=== PATIENT | male | born 1990 | race Caucasian/White ===

== ENCOUNTER 2024-02-17 12:16 | Inpatient (IN) | payer OTHER, MEDICAID, SELFPAY ==
[2024-02-11 14:21] VITALS: BMI 63.6
--- NOTE | 2024-02-15 21:02 | P.HP_ITS ---
History of Present Illness History of Present Illness [place] [facility] [place]: 33 year old male here for right foot pain. The condition began over 2 months ago. 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 He was seen by primary care physician, who referred him to podiatry with X-ray finding of irregularity to second metatarsal head. Patient rates the pain at +6/10, and it is constant whether he's resting or moving the toes. This is affecting his day to day activities and work. Since last visit, patient made no progress despite being compliant with CAM boot immobilization as well as failing steroid injection. Patient is interested in surgical intervention for a chance of relief. Patient denies n/v/f/c/sob/cp. [facility] Medical History (Updated 02/12/24 @ 08:26 by Keturah Oliveira RN) Morbid obesity with BMI of 60.0-69.9, adult HLD (hyperlipidemia) HTN (hypertension) Freiberg's disease Diabetes Surgical History (Updated 02/12/24 @ 07:51 by Keturah Oliveira RN) Hx of tonsillectomy (2006) History of open reduction and internal fixation (ORIF) procedure (2008) Hx of left knee surgery (2018) History of carpal tunnel surgery of left wrist (02/06/21) History of carpal tunnel surgery of right wrist (2018) Social History household members: family Smoking Status: Current every day smoker alcohol intake: current Meds Home Medications and Allergies Home Medications Medication Instructions Recorded Confirmed Type albuterol sulfate 90 mcg/actuation 2 puff inhalation Q4-6H PRN 02/12/24 02/12/24 History aerosol inhaler Shortness Of Breath atorvastatin 10 mg tablet 10 mg PO BEDTIME 02/12/24 02/12/24 History furosemide 20 mg tablet 20 mg PO DAILY 02/12/24 02/12/24 History ibuprofen 200 mg tablet 800 mg PO Q8H PRN Pain 02/12/24 02/12/24 History lisinopril 10 mg tablet 10 mg PO DAILY 02/12/24 02/12/24 History metformin 500 mg tablet 500 mg PO BID 02/12/24 02/12/24 History Allergies Allergy/AdvReac Type Severity Reaction Status Date / Time nafcillin Allergy Rash Verified 02/12/24 07:51 Review of Systems Review of Systems Narrative: Negative except as mentioned in HPI. Exam Neuro Other: NV intact. Extrem Other: Pain on palpation to second metatarsophalangeal joint. Negative Shai's test. Assessment & Plan Assessment & Plan narrative: 1. Right foot Freiberg disease. 2. Right foot pain. 3. Type II Diabetes. Patient seen and evaluated. Surgical plan: right foot metatarsectomy with implant arthroplasty. Risks and benefits discussed with all questions answered to patient's satisfaction and no guarantees made. Reviewed potential complications that may include but not limited to the following: DVT, failure to resolve all symptoms, infection, bleeding, nerve disorder, recurrence, or wound. Patient verbalized understanding and agreed with surgical plan. RTC for post-op.
[2024-02-16] VITALS (25 sets, daily range): BP systolic 110–160; BP diastolic 52–91; PULSE 77–121; RESP 14–35; TEMP 36.3–37.5; O2SAT 82–99; BMI 63.1
--- NOTE | 2024-02-16 07:51 | PM.PREOP ---
Pre-operative Note Interval Note History & Physical reviewed/Exam performed by Physician: Yes Changes to H&P: No
[2024-02-16] MEDS: CLINDAMYCIN 900 MG/50 ML PIGGYBACK 50 MG IV (13:39)
--- NOTE | 2024-02-16 14:06 | SUR.OPER ---
Supine on padded OR bed, head on pillow, arms secured on padded arm boards at <90 degrees abduction, legs uncrossed, tape over blanket on non operative leg, operative leg resting on bump of blankets, bump under right hip, safety belt at thigh, another safety belt over abdomen.
[2024-02-16] MEDS: LIDOCAINE 1% 20 ML INJ (14:35)
[2024-02-16] MEDS: BUPIVACAINE 0.5% (PF) 30 ML VIAL INJ (14:35)
[2024-02-16] MEDS: VANCOMYCIN 1,000 MG VIAL 1000 MG TOP (15:17)
--- NOTE | 2024-02-16 17:49 | SUR.PHASEI ---
PACU - Updated Dr. Juarez (anesthesia) on continued low oxygenation. Patient currently on 5L via Nasal Canula and fluctuates between 87-96%. Dr. Juarez and Dr. Mcqueen both at bedside. Both agree that patient should spend the night due to oxygen needs. Patient aware and coordinator updated. Patient's mother updated that patient will be spending the night. Patient otherwise stable and resting peacefully.
--- NOTE | 2024-02-16 17:59 | PM.PN.1 ---
Subjective Subjective Interval history: Patient is s/p right second metatarsectomy with implant placement. Patient demonstrated respiratory distress and inability to maintain oxygen level. Spoke to Dr. Fajardo in regards to post-op observation. Appreciate cooperative efforts with order and all necessary measures and okay to be d/c when stable. - Aayush Mcqueen DPM; call/text . Exam Vital Signs (past 8 hours): - 02/16/24 16:06 02/16/24 16:09 02/16/24 16:11 Temperature 99.5 F Pulse Rate 97 H 102 H 99 H Respiratory Rate 33 H 34 H 35 H Blood Pressure 123/67 126/66 123/63 Pulse Oximetry 93 92 91 Oxygen Delivery Method Simple Mask Simple Mask Simple Mask Oxygen Flow Rate 10 10 10 02/16/24 16:16 02/16/24 16:21 02/16/24 16:26 Temperature 99.3 F Pulse Rate 98 H 114 H 112 H Respiratory Rate 30 H 20 31 H Blood Pressure 160/69 H 134/88 142/89 H Pulse Oximetry 92 91 93 Oxygen Delivery Method Simple Mask Simple Mask Oxygen Flow Rate 10 10 10 02/16/24 16:31 02/16/24 16:45 02/16/24 17:00 Temperature 99.5 F Pulse Rate 121 H 113 H 108 H Respiratory Rate 21 27 H 20 Blood Pressure 156/78 H 155/85 H 124/68 Pulse Oximetry 82 L 97 93 Oxygen Delivery Method Simple Mask Simple Mask CPAP Oxygen Flow Rate 5 10 2 02/16/24 17:15 02/16/24 17:32 02/16/24 17:40 Temperature 99.5 F Pulse Rate 103 H 100 H 98 H Respiratory Rate 20 14 22 Blood Pressure 117/54 L 119/54 L Pulse Oximetry 89 L 89 L 87 L Oxygen Delivery Method CPAP CPAP Nasal Cannula Oxygen Flow Rate 2 3 5 Oxygen Delivery Method Nasal Cannula Oxygen Flow Rate 5 PFSH Medical History (Updated 02/12/24 @ 08:26 by Keturah Oliveira RN) Morbid obesity with BMI of 60.0-69.9, adult HLD (hyperlipidemia) HTN (hypertension) Freiberg's disease Diabetes Surgical History (Updated 02/12/24 @ 07:51 by Keturah Oliveira RN) Hx of tonsillectomy (2006) History of open reduction and internal fixation (ORIF) procedure (2008) Hx of left knee surgery (2019) History of carpal tunnel surgery of left wrist (02/06/21) History of carpal tunnel surgery of right wrist (2019) Social History household members: family Smoking Status: Current every day smoker alcohol intake: current
[2024-02-16] MEDS: OXYCODONE IR 5 MG TABLET PO (18:14)
--- NOTE | 2024-02-16 19:05 | PM.HP.1 ---
History of Present Illness History of Present Illness Date Patient Seen: 02/16/24 Time Patient Seen: 19:05 Chief complaint: SDC Narrative: The patient is a 33-year-old male who is status post a right 2nd metatarsal ectomy with implant placement today. The patient has a history of morbid obesity with a BMI of 63 as well as sleep apnea and had some respiratory distress and hypoxemia in the recovery phase. He was felt that he would do best being observed overnight to monitor oxygenation and respiratory status. The patient does have a BiPAP at home but has great difficulty using it because of claustrophobia. He was transferred to the floor on 2 L of oxygen is feeling more awake. He denies any shortness a breath. His oximeter reads 93% on 3 L. He denies any chest pain. His foot pain is well controlled with the pain medication he received in the post procedural area. He denies any recent difficulties with constipation, or diarrhea. No recent hematuria, or dysuria. He takes oral medications for diabetes. [facility] Medical History Morbid obesity with BMI of 60.0-69.9, adult HLD (hyperlipidemia) HTN (hypertension) Freiberg's disease Diabetes Surgical History Hx of tonsillectomy (2006) History of open reduction and internal fixation (ORIF) procedure (2008) Hx of left knee surgery (2018) History of carpal tunnel surgery of left wrist (02/06/21) History of carpal tunnel surgery of right wrist (2018) Social History household members: family Smoking Status: Current every day smoker alcohol intake: current Meds Home Medications and Allergies Home Medications Medication Instructions Recorded Confirmed Type albuterol sulfate 90 mcg/actuation 2 puff inhalation Q4-6H PRN 02/12/24 02/16/24 History aerosol inhaler Shortness Of Breath atorvastatin 10 mg tablet 10 mg PO BEDTIME 02/12/24 02/16/24 History furosemide 20 mg tablet 20 mg PO DAILY 02/12/24 02/16/24 History ibuprofen 200 mg tablet 800 mg PO Q8H PRN Pain 02/12/24 02/16/24 History lisinopril 10 mg tablet 10 mg PO DAILY 02/12/24 02/16/24 History metformin 500 mg tablet 500 mg PO BID 02/12/24 02/16/24 History oxycodone-acetaminophen 5 mg-325 1 tab PO Q6H PRN pain #30 tabs 02/16/24 02/16/24 Rx mg tablet (Percocet) Allergies Allergy/AdvReac Type Severity Reaction Status Date / Time nafcillin Allergy Rash Verified 02/16/24 09:53 Review of Systems Review of Systems Narrative: All else reviewed and otherwise unremarkable except as noted in the history and physical. Exam Vital Signs (past 8 hours): - 02/16/24 16:06 02/16/24 16:09 02/16/24 16:11 Temperature 99.5 F Pulse Rate 97 H 102 H 99 H Respiratory Rate 33 H 34 H 35 H Blood Pressure 123/67 126/66 123/63 Pulse Oximetry 93 92 91 Oxygen Delivery Method Simple Mask Simple Mask Simple Mask Oxygen Flow Rate 10 10 10 02/16/24 16:16 02/16/24 16:21 02/16/24 16:26 Temperature 99.3 F Pulse Rate 98 H 114 H 112 H Respiratory Rate 30 H 20 31 H Blood Pressure 160/69 H 134/88 142/89 H Pulse Oximetry 92 91 93 Oxygen Delivery Method Simple Mask Simple Mask Oxygen Flow Rate 10 10 10 02/16/24 16:31 02/16/24 16:45 02/16/24 17:00 Temperature 99.5 F Pulse Rate 121 H 113 H 108 H Respiratory Rate 21 27 H 20 Blood Pressure 156/78 H 155/85 H 124/68 Pulse Oximetry 82 L 97 93 Oxygen Delivery Method Simple Mask Simple Mask CPAP Oxygen Flow Rate 5 10 2 02/16/24 17:15 02/16/24 17:32 02/16/24 17:40 Temperature 99.5 F Pulse Rate 103 H 100 H 98 H Respiratory Rate 20 14 22 Blood Pressure 117/54 L 119/54 L Pulse Oximetry 89 L 89 L 87 L Oxygen Delivery Method CPAP CPAP Nasal Cannula Oxygen Flow Rate 2 3 5 02/16/24 18:00 02/16/24 18:05 02/16/24 18:17 Temperature 99.3 F 98.7 F Pulse Rate 99 H 98 H Respiratory Rate 19 17 Blood Pressure 115/72 123/71 Pulse Oximetry 91 94 95 Oxygen Delivery Method Nasal Cannula Nasal Cannula Nasal Cannula Oxygen Flow Rate 5 5 5 02/16/24 18:50 Temperature 97.3 F L Pulse Rate 105 H Respiratory Rate 28 H Blood Pressure 129/65 Pulse Oximetry 94 Oxygen Delivery Method Oxygen Flow Rate 5 Oxygen Delivery Method Nasal Cannula Oxygen Flow Rate 5 Narrative Exam Narrative: NAD, alert and oriented, fluent speech, calm. Morbidly obese. On oxygen, 3 L. Normocephalic skull, EOMI, anicteric sclera, symmetric pupils. Oropharynx unremarkable, no droop. Neck supple, midline trachea, no adenopathy. Lungs clear, normal rate and effort. Heart regular, no murmur gallop or rub. Abdomen is soft, non distended and non tender. Extremities are free of edema. Skin is free of rash or lesions. Joints are not swollen or deformed. Judgment appears to be normal. Assessment & Plan Assessment & Plan narrative: 1. Postoperative hypoxemia and respiratory distress, active and improving. 2. Morbid obesity BMI of 63, present on admission and active. 3. DM 2, present on admission and active. 4. Hypertension, present on admission and active. 5. Obstructive sleep apnea, present on admission and active. Plan: -we will monitor with oximeter and telemetry tonight. -wean O2 as able, anticipate nighttime desaturations from sleep apnea. -pain medication as needed with close monitoring. -correctional lispro tonight and a carb controlled diet. -monitor blood pressure, usual blood pressure medications. He is full resuscitation. He was admitted to observation, estimated length of stay is 1 night. Time Spent With Patient Time with patient: 30 to 49 minutes with 50% spent counseling/coordinating care Quality MIPS - Admit I confirm the patient?s Advance Care Plan is present, Code status is documented, Surrogate decision maker is in patient?s record [If Yes, STOP here]: Yes MIPS - Meds 'Current medications' to include all prescriptions, [id number] products, herbals, cannabis/cannabidiol products, and vitamin/mineral/dietary (nutritional) supplements. I have utilized all available resources to obtain, update, or review the patient?s current medications. [If Yes, STOP here]: Yes
[2024-02-16] MEDS: HEPARIN 5,000 UNIT/ML VIAL 5000 UNIT SUBCUT (21:28)
[2024-02-16] MEDS: ATORVASTATIN 20 MG TABLET 10 MG PO (21:28)
[2024-02-16] MEDS: OXYCODONE/ACETAMINOPHEN 5/325 TABLET 1 TAB PO (21:29)
[2024-02-16] MEDS: INSULIN LISPRO 100 UNIT/ML 3ML VIAL SUBCUT (21:40)
[2024-02-16] MEDS: NICOTINE 21 MG PATCH TOP (22:56)
[2024-02-16] MEDS: IBUPROFEN 400 MG TABLET 800 MG PO (23:00)
[2024-02-16] MEDS: HYDROMORPHONE 0.5 MG INJ IV (23:00)
--- NOTE | 2024-02-17 00:22 | PC.NURSE ---
Addendum entered by Keturah Rosario R.N. 02/17/24 06:39: Patient requested to remove BiPAP, stating he is awake and up for the day. Currently on 3L NC, O2 saturation 96%. Patient is talking on the phone. Cont p/ox in place. Addendum entered by Keturah Rosario R.N. 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 O2 saturation >92%. 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 Patient appears SOB at rest, although patient states that he normally breathes like this and states that he feels fine. Educated patient on use of IS. Denies CP or nausea. Voids independently with urinal, has not attempted to get OOB yet. Patient states that he sleeps with BiPAP at night, RT notified and assisted patient with set-up. Cont tele & p/ox in place. Pain medications given as ordered. Right foot is covered with gauze and JOSE wrap; CMS intact, right foot elevated. Oriented to call-light. Plan of care ongoing.
[2024-02-17 01:56] VITALS: BP 126/85; PULSE 90; PULSE 94; RESP 12; RESP 17; RESP 22; TEMP 31; O2SAT 94; O2SAT 95
--- NOTE | 2024-02-17 02:22 | RT ---
Pt noted with sustained SpO2 desturation while on standard hospital CPAP unit with 6L O2 bleed in. Dr. Beard notified at 0126, verbal order obtained. RT placed pt on hospital BiPAP 23/04, back up rate 12, FiO2 30% at 0156, pt tolerating well, noting immediate SpO2 improvement. Device plugged into red outlet. RN notified. Will cont. to monitor.
[2024-02-17 03:35] VITALS: PULSE 90; RESP 14; RESP 18; TEMP 31; O2SAT 93
[2024-02-17 04:52] VITALS: PULSE 85; RESP 14; RESP 21; TEMP 31; O2SAT 93
--- NOTE | 2024-02-17 05:47 | RT ---
0539 - Pt requested to be off BiPAP, was placed on 6L NC. Tolerating well. SpO2 noted WNLs. RN at bedside.
[2024-02-17] MEDS: OXYCODONE/ACETAMINOPHEN 5/325 TABLET 1 TAB PO (06:24)
[2024-02-17 06:26] LABS: Add Manual Diff / Slide Review NO; Basophils Absolute Auto 100 /uL (0-100); Basophils Percent Auto 0.7 % (0-2); Eosinophils Absolute Auto 0 /uL (0-450); Hematocrit 42.8 % (41-53); Hemoglobin 13.8 g/dL (13.5-17.5); Lymphocytes Absolute Auto 1200 /uL (1100-4500); Lymphocytes Percent Auto 9.1 % (25-40); Mean Corpuscular HGB Conc 32.2 % (30-36); Mean Corpuscular Hemoglobin 26.7 PG (26-34); Mean Corpuscular Volume 82.9 fL (80-100); Monocytes Absolute Auto 600 /uL (0-900); Monocytes Percent Auto 4.2 % (3-14); Neutrophils Absolute Auto 11400 /uL (1500-7000); Platelet Count 302 X10^3/uL (150-400); Red Blood Cell Count 5.16 X10^6/uL (4.5-5.9); Red Cell Distribution Width 15.5 % (11.6-14.8); White Blood Cell Count 13.2 X10^3/uL (4.5-11.0)
[2024-02-17 06:44] LABS: BUN Creatinine Ratio 24.6 (6-22); Blood Urea Nitrogen 14 mg/dL (9-20); Calcium 9.2 mg/dL (8.4-10.2); Carbon Dioxide 27 mmol/L (22-32); Chloride 104 mmol/L (98-107); Estimated Glomerular Filt Rate > 60 mL/min (>60); Glucose 258 mg/dL (70-100); HEMOLYSIS < 15 (0-50); Potassium 4.7 mmol/L (3.4-5.1); Sodium 138 mmol/L (137-145)
[2024-02-17 08:00] VITALS: BP 130/74; PULSE 100; RESP 18; TEMP 35.5; O2SAT 94
[2024-02-17 08:28] VITALS: O2SAT 92
[2024-02-17] MEDS: IBUPROFEN 400 MG TABLET 800 MG PO (09:12)
[2024-02-17] MEDS: ACETAMINOPHEN 325 MG TABLET 650 MG PO (09:13)
[2024-02-17] MEDS: OXYCODONE IR 5 MG TABLET PO (09:13)
[2024-02-17] MEDS: FUROSEMIDE 20 MG TABLET PO (09:14)
[2024-02-17] MEDS: HEPARIN 5,000 UNIT/ML VIAL 5000 UNIT SUBCUT (09:14)
[2024-02-17] MEDS: lisinopriL 10 MG TABLET PO (09:14)
[2024-02-17] MEDS: INSULIN LISPRO 100 UNIT/ML 3ML VIAL SUBCUT (09:19)
[2024-02-17] MEDS: METFORMIN HCL 500 MG TABLET PO (09:30)
--- NOTE | 2024-02-17 10:16 | PM.DS.1 ---
History of Present Illness History of Present Illness Chief [place] [facility] [place]ative: The patient is a 33-year-old male who is status post a right 2nd metatarsal ectomy with implant placement today. The patient has a history of morbid obesity with a BMI of 63 as well as sleep apnea and had some respiratory distress and hypoxemia in the recovery phase. He was felt that he would do best being observed overnight to monitor oxygenation and respiratory status. The patient does have a BiPAP at home but has great difficulty using it because of claustrophobia. He was transferred to the floor on 2 L of oxygen is feeling more awake. He denies any shortness a breath. His oximeter reads 93% on 3 L. He denies any chest pain. His foot pain is well controlled with the pain medication he received in the post procedural area. He denies any recent difficulties with constipation, or diarrhea. No recent hematuria, or dysuria. He takes oral medications for diabetes. Discharge Providers Provider Date of admission: 02/16/2024 Discharge Date: 02/17/24 Primary care physician: Bunny Marina DO Consults: 02/16/24 17:56 Consult to Hospitalist Service Routine Comment: Consulting Provider: Aayush Mcqueen Reason for consultation: Post-op respiratory distress Has provider been notified: Yes Discharge provider: Kemar Fajardo MD Summary Hospital Course Discharge Diagnosis: 1. Postoperative hypoxemia and respiratory distress, active and improving. 2. Morbid obesity BMI of 63, present on admission and active. 3. DM 2, present on admission and active. 4. Hypertension, present on admission and active. 5. Obstructive sleep apnea, present on admission and active. Hospital Course: He would concerns for respiratory status postprocedure. He was history of morbid obesity and sleep apnea which is being treated with a BiPAP at home. He was transferred to the floor for observation and did well. He was able to wean off from oxygen in the morning of discharge. He was placed on BiPAP overnight primarily for sleep apnea. He likely has chronic nocturnal desaturations from sleep apnea and is obesity syndrome. 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 Status at Discharge Cognitive/behavioral status at discharge: oriented Functional status at discharge: independent ambulation Overall status at discharge: patient is back to baseline Time Spent with Patient Time spent: Greater than 30 minutes Exam Vital Signs (past 8 hours): - 02/17/24 03:35 02/17/24 04:52 02/17/24 08:00 Temperature 96 F L Pulse Rate 100 H Respiratory Rate 18 Blood Pressure 130/74 Pulse Oximetry 94 Oxygen Delivery Method Oxygen Flow Rate 2 Fraction of Inspired Oxygen 30 30 02/17/24 08:28 Temperature Pulse Rate Respiratory Rate Blood Pressure Pulse Oximetry 92 Oxygen Delivery Method Room Air Oxygen Flow Rate Fraction of Inspired Oxygen Fraction of Inspired Oxygen 30 SaO2/FiO2 Ratio 232 Oxygen Delivery Method Room Air Oxygen Flow Rate 2 Narrative Exam Narrative: NAD, alert and oriented. Fluent speech. Lungs are clear, normal rate and effort. Heart is regular, no murmur gallop or rub. Abdomen is soft, non distended. Extremities are free of edema. Objective Labs 02/17/24 06:05 02/17/24 06:05 Labs: Laboratory Results - last 24 hr 02/17/24 06:05 WBC 13.2 H RBC 5.16 Hgb 13.8 Hct 42.8 MCV 82.9 MCH 26.7 MCHC 32.2 RDW 15.5 H Plt Count 302 Neut % (Auto) 86.0 H Lymph % (Auto) 9.1 L Burke % (Auto) 4.2 Eos % (Auto) 0.0 L Baso % (Auto) 0.7 Neut # (Auto) 30523 H Lymph # (Auto) 1200 Burke # (Auto) 600 Eos # (Auto) 0 Baso # (Auto) 100 Sodium 138 Potassium 4.7 Chloride 104 Carbon Dioxide 27 BUN 14 Creatinine 0.57 L Estimated GFR > 60 BUN/Creatinine Ratio 24.6 H Glucose 258 H Calcium 9.2 PFSH Medical History Morbid obesity with BMI of 60.0-69.9, adult HLD (hyperlipidemia) HTN (hypertension) Freiberg's disease Diabetes Surgical History Hx of tonsillectomy (2006) History of open reduction and internal fixation (ORIF) procedure (2008) Hx of left knee surgery (2018) History of carpal tunnel surgery of left wrist (02/06/21) History of carpal tunnel surgery of right wrist (2019) Social History household members: family Smoking Status: Current every day smoker alcohol intake: current Discharge Assessment & Plan Assessment and Plan Assessment: 1. Postoperative hypoxemia and respiratory distress, active and improving. 2. Morbid obesity BMI of 63, present on admission and active. 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 Friday with Dr. Mcqueen for a wound dressing change, NWB until then. He was a scooter, and crutches at home and may get a walker. Discharge Plan Discharge Plan Patient Disposition: Home Provider Discharge Comment: Stable for discharge home. Nursing Discharge Comment: Dont soak incision. May shower with a boot on. Keep the splint in place. Discharge orders & Medications Discharge Orders: Discharge (Order); Ordered 02/17/24 Ordered By: Kemar Fajardo Prescriptions: New oxycodone-acetaminophen [Percocet] 5-325 mg tablet 1 tab PO Q6H PRN (Reason: pain) Qty: 30 0RF ondansetron 8 mg tablet,disintegrating 8 mg PO Q12H PRN (Reason: nausea and vomiting) Qty: 30 0RF Continued metformin 500 mg Tablet 500 mg PO BID atorvastatin 10 mg Tablet 10 mg PO BEDTIME lisinopril 10 mg Tablet 10 mg PO DAILY ibuprofen 200 mg Tablet 800 mg PO Q8H PRN (Reason: Pain) furosemide 20 mg Tablet 20 mg PO DAILY albuterol sulfate 90 mcg/actuation Hfa Aerosol Inhaler 2 puff INHALATION Q4-6H PRN (Reason: Shortness Of Breath) Follow up/Referrals: Aayush Mcqueen DPM [Physician] - 02/20/24 2:15 pm (Appt:02/19 @ 2:[address] Mcqueen please arrive 15 min prior to your scheduled appointment time ) Bunny Marina DO [Primary Care Provider] - Diet/Activity/Treatments Diet: Diet as Tolerated Activity: NON WEIGHT BEAR to surgicaL limb. Cold/Heat Therapy: Ice behind knee 15 min/hour when awake and elevate above heart on 2+ pillows. Other treatments: RTC on Friday in [place] for post-op check. Skin/Wound/Dressing Care Report to your healthcare provider any signs of infection, such as:: chills, fever, night sweats, increased pain, unusual drainage and unusual redness Dressing: Keep dressing clean, dry, and intact. Do not remove. Visit Report/Discharge Packet Instructions: How to Use an Incentive Spirometer, DI for Constipation, How to Measure Oxygen Saturation via Pulse Oximetry, DI for Prescription Opioid Use, DI for Respiratory Distress Syndrome -- Adult Stand Alone Forms: Patient Portal/API, Dr. Rey Discharge Discharge Data Primary Care Provider: Bunny Marina Attending Provider: Aayush Mcqueen VTE Deep Vein Thrombosis/Pulmonary Embolism Present on Admission: No
--- NOTE | 2024-02-17 10:32 | CM.DANOTE ---
Initial DCP Assessment Visit Note Reviewed EMR and team rounds for status updates. Met with pt at bedside to introduce self and role, pt was found to be alert/oriented, sitting upright in bed, and able to discuss his plan/preferences for home discharge. Pt lives independently with his family in [place], a family friend will be transporting him home later this morning after he works with therapies. No identified d/c needs for CM assistance at this time. Payor: Coordinated Care Attending: Dr. Mcqueen Pt is a 33 year-old M post-op day 1 from an ankle surgery w/implant. 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 He had tried conservative efforts for pain control, including a boot and an injection, however his pain persisted. Plan was made for surgery, no need for Home Health or any other resources at this time. Pt has a plan to follow up with Ortho postoperatively for a wound check. Due to factors such as his morbid obesity, sleep apnea, and respiratory distress/hypoxemia in the PACU, pt required 2LO2 and was admitted to the floor to monitor oxygenation and respiratory status. DCP will continue to follow for any further evolving needs prior to his discharge. Discharge Planning/Care Management CM Discharge Assessment Start: 02/17/24 10:30 Freq: Status: Active Protocol: Document 02/17/24 10:30 DPL (Rec: 02/17/24 10:32 DPL [id number]) Discharge Planning Assessment Assigned Billposter ELODIA Morales Advance Directives? No History Provided By Patient,Medical Record Has Patient been admitted in last 30 No days? Prior Living Arrangements House Household Members family Type of transporation used prior to Drives own vehicle admit Willing to Return to Facility? No Independent with ADL's Yes Is patient alert and oriented? Yes Comment N/A Caregiver for Another No Comment N/A Comment No anticipated home d/c needs identified at this time. Barriers to Discharge No Discharge Plan Home Transportation Arrangement Friend Referrals Initiated None needed Whiteboard Updated in Patient Room with Yes name and ext. 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 No Currently Taking a Beta Emiliana No Can You Climb a Flight of Stairs Without Yes SOB Anti-Coagulant Therapy No Has a Tunnel Worker Yes: Pre-op 02/10/[address] Phipps @ [facility] Hx Pacemaker/ICD No Pacemaker Rep Required? No Cardiac Clearance Received Yes Comment Cardiac records scanned and in surgery folder Urinary Catheter Present No Hx Urinary Self Catheterization No Diabetes Yes HgbA1C 7.0 Date 01/28/24 Marital Status Single Lives With family Patient Discharge Plan Description Return Home
--- NOTE | 2024-02-17 13:40 | PC.NURSE ---
Discharge: Pt feels ready to d/c to home. MD Fajardo is aware that sats on RA are 88-92%, pt reports this is his usual. Doesn't feel any more sob than usual for now. Has been up to the chair, using his crutches or walker. Is following his non weight bear precautions. He does have a walker at home. Po pain meds effective for pain. Vds w/out diff. Tolerates diet w/out problems. He feels ready to d/c to home. Reviewed d/c packet, questions answered. Pt d/c to home via auto with friend.
--- NOTE | 2024-02-17 23:19 | PM.OP.1 ---
Operative Date/Time/Diagnoses Pre-op diagnosis: 1. Right foot Freiberg disease Post-op diagnosis: same Procedure & Clinicians Procedure: 1. Right foot ostectomy with implant arthroplasty Same procedure as scheduled: Yes Indications: 1. Failed conservative treatments with continuous pain after right foot injury Surgeon: Aayush Mcqueen Click Yes if Unassisted: Yes Anesthesia Type: General Operative Notes Findings: 1. Flattened second metatarsal head with floating cartilage and notable thickened synovial tissue Closure Type: primary Specimen(s): none sent Prosthetic devices, grafts, tissues, transplants, or devices: BioPoly Estimated Blood Loss (mL): 25 Blood products transfused: none Tourniquet time (min): 78 Procedure in detail: Patient was identified and consent obtained. Patient was brought to the operating room and placed on the bed in supine position. Appropriate monitors were then placed, and general anesthesia was administered. Local anesthesia was infiltrated in the right second metatarsophalangeal joint (MTPJ) using 10 cc 1% lidocaine plain. Once this was done, the right ankle and foot were then prepped and draped in the usual sterile fashion. After exsanguination, right ankle tourniquet was inflated to 250 mmHg. Timeout was performed with the operating room all in agreement. Attention was directed to dorsal right second metatarsophalangeal joint. A linear incision was made using #15 scalpel. Dissection was carried out from skin down tot the subcutaneous tissue using a a #15 scalpel. Care was taken to protect neurovascular structures. The extensor tendons were identified and retracted laterally. The joint capsule was release a #15 scalpel and a McGlamry elevator. Remarkable thickening noted to the synovium, which was sharply removed. A flattened metatarsal head was identified, as well as floating loose bodies inside the joint. Decision was made to release to medial and lateral collateral ligaments. Following manufacture instructions, an appropriate cut guide was used to assist with resection of distal metatarsal head via a sagittal saw on power. After verification on fluoroscopy, the designated drill was used, and a suitable size of implant was inserted after confirmation with the trial piece. The procedure site was irrigated copiously using flushed saline. The alignment of toe and motion was verified to be optimal at this time, and then surgical site was closed in layers from deep to superficial using 3-0 vicryl and 4-0 vicryls and 3-0 nylon. The tourniquet was released, and perfusion to all digits was noted. 20 cc of 0.5% marcaine plain was administered. Surgical foot was cleansed, followed by sterile dressings using iodine soaked Adaptic, gauze, and Kerlix. A posterior splint was applied over well-padded surface and secured with elastic bandage wraps. Patient tolerated procedure and anesthesia without complication. The patient was transferred to PACU hemodynicamlly stable with close monitoring of respiratory status. Post-operative Condition: stable Disposition: observation Plan for aftercare: Keep dressing clean, dry, and intact. NWB to surgical limb. Elevate above heart on 2+ pillows. Take medications as directed. RTC as scheduled.
== END 2024-02-17 12:33 | disposition home or self-care (01) | DRG 314 ==
PROVIDERS: Hospitalist; Admitting Provider Podiatrist Foot & Ankle Surgery; PCP Family Medicine; Referring Provider Podiatrist Foot & Ankle Surgery; Visit Provider Podiatrist Foot & Ankle Surgery
PROC: (CPT 26535; principal; 2024-02-16 10:15)
DX: M92.71 Juvenile osteochondrosis of metatarsus, right foot (principal); E66.01 Morbid (severe) obesity due to excess calories; E11.9 Type 2 diabetes mellitus without complications; R09.02 Hypoxemia; R06.03 Acute respiratory distress; G47.33 Obstructive sleep apnea (adult) (pediatric); J95.89 Other postprocedural complications and disorders of respiratory system, not elsewhere classified; E78.5 Hyperlipidemia, unspecified; I10 Essential (primary) hypertension; F17.210 Nicotine dependence, cigarettes, uncomplicated; Z68.44 Body mass index [BMI] 60.0-69.9, adult; Z79.84 Long term (current) use of oral hypoglycemic drugs
CPT/HCPCS: 36415; 80048; 82962; 85025; 94660; 94762; C1713; J0330; J1100; J1170; J1642; J1644; J1815; J2250; J2405; J2704; J3010

== ENCOUNTER 2025-05-26 06:14 | Day surgery (SDC) | payer OTHER, SELFPAY ==
[2024-02-16 18:21] VITALS: BMI 63.1
[2024-02-17 04:52] VITALS: PULSE 85; RESP 21; O2SAT 93
[2025-05-18 09:00] VITALS: BMI 65.8
--- NOTE | 2025-05-26 | PATH_ITS ---
[facility] Accession Number: [id number] No. of containers..01 Tissue . 01 Material submitted: . METATARSAL - RIGHT SECOND METATARSAL HEAD . 01 Clinical history: . HYPERTROPHY OF BONE, RIGHT ANKLE AND FOOT . 01 Diagnosis: RIGHT SECOND METATARSAL HEAD, AMPUTATION: Trabecular bone with evidence of remodeling and interspersed marrow with mild fibrosis. See comment. MRV 06/06/2025 1331 Local . 01 Comment: There is no evidence of osteomyelitis or osteonecrosis. The histologic features are nonspecific. Clinical correlation is recommended. . 01 Electronically signed: . Maki Daniel MD, Pathologist NPI- [id number] . 01 Gross description: . Received in formalin with two identifiers and RT second metatarsal head is an amputated fragment of bone with articular surface and attached soft tissue measuring 2.4 x 1.9 x 1.9 cm. The margin is inked blue. Sectioning reveals bruner osseous tissue that is relatively difficult to section with a scalpel as well as a metal piece of surgical hardware measuring approximately 1.1 cm in diameter and 1.4 cm in length. Information Assurance Analyst sections are submitted in A1 following decalcification. ([id number]) /MRV 05/27/2025 1934 Local . 01 Pathologist provided ICD-10: M89.371 . 01 CPT . 275802, [id number] Specimen Comment: A courtesy copy of this report has been sent to [facility] Performed at: [address] [id number] MD Dwayne Wilson MD Phone: [phone]
--- NOTE | 2025-05-26 06:33 | PM.HP.1 ---
History of Present Illness History of Present Illness Chief complaint: Right foot pain Narrative: 34 year old male with diabetes and obesity presented with rifht forefoot pain. Patient underwent successful left knee surgery and is still doing rehabilitation for it. His pain in the right midfoot has also resolved since sustaining midfoot fractures last May. He continue to experiences severe pain to the right forefoot that is constantly inflamed and tender to touch, and the symptoms worsen with ambulation. Patient wants to become more active in order to lose weight, and the pain inhibits him from achieving this goal. Patient has tried and failed conservative measures that included custom insoles, designated exercises, and all anti-inflammatory measures. Patient would like to proceed with all possible surgical means. [facility] Medical History (Updated 05/18/25 @ 09:42 by Keturah Oliveira RN) GERD (gastroesophageal reflux disease) History of COVID-19 (2019) CHAYA on CPAP Ulcerative esophagitis Morbid obesity with BMI of 60.0-69.9, adult HLD (hyperlipidemia) HTN (hypertension) Freiberg's disease Diabetes Surgical History (Updated 05/18/25 @ 09:40 by Keturah Oliveira RN) S/P foot surgery, right (02/2024) Hx of thumb surgery Hx of knee surgery (02/2025) Hx of tonsillectomy (2006) History of open reduction and internal fixation (ORIF) procedure (2008) Hx of left knee surgery (2018) History of carpal tunnel surgery of left wrist (02/06/21) History of carpal tunnel surgery of right wrist (2018) Social History household members: family Smoking Status: Current every day smoker alcohol intake: current Meds Home Medications and Allergies Home Medications ?Medication ?Instructions ?Recorded ?Confirmed ?Type albuterol sulfate 90 mcg/actuation 2 puff inhalation Q4-6H PRN 02/12/24 05/18/25 History aerosol inhaler Shortness Of Breath atorvastatin 10 mg tablet 10 mg PO DAILY 02/12/24 05/18/25 History furosemide 20 mg tablet 20 mg PO DAILY 02/12/24 05/18/25 History ibuprofen 200 mg tablet 800 mg PO Q8H PRN Pain 02/12/24 05/18/25 History lisinopril 10 mg tablet 10 mg PO DAILY 02/12/24 05/18/25 History metformin 500 mg tablet 500 mg PO BID 02/12/24 05/18/25 History ondansetron 8 mg disintegrating 8 mg PO Q12H PRN nausea and 02/16/24 05/18/25 Rx tablet vomiting #30 tabs oxycodone-acetaminophen 5 mg-325 1 tab PO Q6H PRN pain #30 tabs 02/16/24 05/18/25 Rx mg tablet (Percocet) empagliflozin 25 mg tablet 25 mg PO QAM 05/18/25 05/25/25 History (Jardiance) insulin lispro 100 unit/mL 16 unit SUBCUT BEDTIME 05/18/25 05/18/25 History subcutaneous pen omeprazole 20 mg capsule,delayed 20 mg PO DAILY 05/18/25 05/18/25 History release tirzepatide 2.5 mg/0.5 mL 7.5 mg SUBCUT QWEEK 05/18/25 05/25/25 History subcutaneous pen injector (Mounjaro) Allergies Allergy/AdvReac Type Severity Reaction Status Date / Time nafcillin Allergy Rash Verified 05/18/25 09:37 Review of Systems Musculoskeletal Comments: Right foot: Severe pain on palpation to second metatarsal head and distal joint. Positive lateral squeeze and compression test to second interspace. Decreased medial longitudinal arch and medial deviation of rays 1-4. Assessment & Plan Assessment & Plan narrative: 1. Right foot second metatarsal hypertrophy Patient seen and evaluated. Surgical plan: right foot second metatarsal head resection. Risks and benefits of the procedure discussed with all questions answered to patient's satisfaction. Reviewed potential complications that may include but not limited to the following: DVT, failure to resolve all symptoms, infection, nerve injury, bleeding, recurrence, or wound. Reviewed surgical technique and general aftercare protocols. All questions answered to patient's satisfaction with no guarantees made. Patient verbalized understanding and agreed with surgical plan. RTC for post-op. Time-Based Coding :: [TOTAL MINUTES] spent with patient and on the chart (including review of chart, obtaining history, exam, reviewing outside data, placing orders, documenting exam and treatment plan, and counseling patient) on [DATE].
--- NOTE | 2025-05-26 06:39 | PM.PREOP ---
Pre-operative Note Interval Note History & Physical reviewed/Exam performed by Physician: Yes Changes to H&P: No
[2025-05-26] MEDS: LACTATED RINGERS 1,000 ML 42 ML IV (06:41)
[2025-05-26] MEDS: FAMOTIDINE 20 MG/2 ML VIAL IV (06:43)
[2025-05-26 06:56] VITALS: BP 125/80; PULSE 94; RESP 17; TEMP 36.7; O2SAT 95; BMI 64.8
[2025-05-26] MEDS: CLINDAMYCIN 900 MG/50 ML PIGGYBACK 50 MG IV (08:00)
[2025-05-26] MEDS: LIDOCAINE 1% 20 ML INJ (08:51)
[2025-05-26 09:25] VITALS: BP 132/66; PULSE 92; RESP 24; TEMP 36.8; O2SAT 95
[2025-05-26 09:30] VITALS: BP 128/62; PULSE 84; RESP 28; O2SAT 95
[2025-05-26] MEDS: ACETAMINOPHEN IV 1,000 MG/100 ML VIAL 400 MG IV (09:31)
[2025-05-26 09:35] VITALS: BP 132/62; PULSE 81; RESP 22; O2SAT 90
[2025-05-26 10:12] VITALS: BP 114/62; PULSE 90; RESP 94
--- NOTE | 2025-05-27 08:14 | PM.OP.1 ---
Operative Date/Time/Diagnoses Date of procedure: 05/26/25 Time of procedure: 07:45 Pre-op diagnosis: 1. Right foot second metatarsal hypertrophy Post-op diagnosis: same Procedure & Clinicians Procedure: 1. Right foot second metatarsal head resection Same procedure(s) as scheduled: Yes Indications: Right foot chronic pain Surgeon: Aayush Mcqueen Click Yes if Unassisted: Yes Anesthesia Type: MAC +/- and Local Operative Notes Findings: Enlarged bone with significant localized scar tissues Specimen(s): none sent Applied: none Estimated Blood Loss (mL): 5 Tourniquet time (min): 32 Procedure in detail: Patient was identified and consent obtained. Patient was brought to the operating room and placed on the bed in supine position. 24 inch ankle tourniquet was applied. Local anesthesia was infiltrated in the right ankle and second metatarsophalangea joint using 20 cc 1:1 1% lidocaine plain and 0.5% marcaine plain. Once this was done, the right ankle and foot were then prepped and draped in the usual sterile fashion. Timeout was performed with the operating room all in agreement. Tourniquet was then inflated to 250 mmHg. Attention was directed to dorsal right second metatarsophalangeal joint. A linear incision was made using #15 scalpel. Dissection was carried out from skin down to the level of bone. Care was taken to protect neurovascular structures. Remarkable thickening noted to the synovium, which was sharply removed. A sagittal saw was used to resect the head of the metatarsal with hypertrophic changes noted, which was then removed. After verification on fluoroscopy, the surgical site was irrigated and closed using 3-0 and 4-0 vicryls and 3-0 nylon. The tourniquet was released, and perfusion to all digits was noted. 10 cc of 1:1 1% lidocaine plain and 0.5% marcaine plain was administered. Surgical foot was cleansed, followed by sterile dressings using iodine soaked Adaptic, gauze, and Kerlix. A posterior splint was applied over well-padded surface and secured with elastic bandage wraps. Patient tolerated procedure and anesthesia without complication. The patient was transferred to PACU hemodynicamlly stable. Complications: none Post-operative Condition: stable Disposition: same day surgery Plan for aftercare: NWB to right foot. Keep dressing clean, dry, and intact. Elevate surgical limb above heart. Ice behind knee.
== END 2025-05-26 10:13 | disposition home or self-care (01) ==
LOC: OR 06:15 → AC 06:18
PROVIDERS: PCP Family Medicine; Referring Provider Family Medicine; Visit Provider Podiatrist Foot & Ankle Surgery
PROC: (CPT 28112; principal; 2025-05-26 07:45)
DX: M89.371 Hypertrophy of bone, right ankle and foot (principal); E11.9 Type 2 diabetes mellitus without complications; E66.01 Morbid (severe) obesity due to excess calories; F17.210 Nicotine dependence, cigarettes, uncomplicated; Z79.4 Long term (current) use of insulin; Z79.85 Long-term (current) use of injectable non-insulin antidiabetic drugs; Z79.84 Long term (current) use of oral hypoglycemic drugs; Z68.44 Body mass index [BMI] 60.0-69.9, adult
CPT/HCPCS: 28112; 82962; J0131; J2250; J2704